=== PATIENT | female | born 1995 | race Caucasian/White ===

== ENCOUNTER 2016-11-04 08:47 | Emergency (ER) | payer OTHER ==
--- NOTE | 2016-11-04 09:14 | EDM.PDOC ---
ED HPI GENERAL MEDICAL PROBLEM - General Chief Complaint: Burn Stated Complaint: RIGHT LEG INJURY Time Seen by Provider: 11/04/16 09:14 - History of Present Illness INITIAL COMMENTS - FREE TEXT/NARRATIVE: 20 yo F who presented to the ER with h/o hot water burn wound to the lateral aspect of the right Leg that she reportedly sustained at work yesterday. Reports that while she was power washing the floor at work, she slipped and Fell down and sustained a first degree burn to the lateral aspect of the right Leg. No other associated injuries. Patient is unsure of her last Tetanus immunization. Treatments MANAGER HI: Reports: Other (see below) Other Treatments MANAGER HI: Dressed and bandaged upon arrival. Right Leg Pain Score (Numeric/FACES): 2 - Related Data Allergies Allergy/AdvReac Type Severity Reaction Status Date / Time No Known Allergies Allergy Verified 11/04/16 08:58 Home Meds: Home Meds NK [No Known Home Meds] 11/04/16 [History] Past Medical History - Past Health History Medical/Surgical History: Denies Medical/Surgical History Social & Family History - Tobacco Use Smoking Status *Q: Never Smoker - Caffeine Use Caffeine Use: Reports: None - Recreational Drug Use Recreational Drug Use: No ED ROS GENERAL - Review of Systems Review Of Systems: ROS reveals no pertinent complaints other than HPI. ED EXAM, BURN/SMOKE INHALATION - Physical Exam Exam: See Below Exam Limited By: No Limitations General Appearance: Alert, WD/WN, No Apparent Distress Eye Exam: Bilateral Eye: EOMI Ears (Abbreviated): Normal External Exam, Normal Canal, Hearing Grossly Normal, Normal TMs Mouth/Throat: No Symptoms Reported Head: No Symptoms Neck: No Symptoms Respiratory: No Respiratory Distress, Lungs Clear, Normal Breath Sounds, No Accessory Muscle Use Cardiovascular: Normal Peripheral Pulses, Regular Rate, Rhythm, No Edema, No JVD GI/Abdominal: Normal Bowel Sounds, Soft, Non-Tender, No Organomegaly, No Distention Back Exam: Normal Inspection, Full Range of Motion Extremity Exam: Other (First degree burn on the lateral aspect of the right Leg) Psychiatric: Normal Affect, Normal Mood Skin Exam: Warm, Dry, Normal Color, No Rash Lymphatic: No Adenopathy Course - Vital Signs Last Recorded V/S: Last Vital Signs Temp 36.7 C 11/04/16 08:50 Pulse 88 11/04/16 08:50 Resp 20 11/04/16 08:50 BP 124/72 11/04/16 08:50 Pulse Ox 98 11/04/16 08:50 - Orders/Labs/Meds Orders: Active Orders 24 hr Category Date Time Status Vaccines to be Administered [RC] PER UNIT ROUTINE Care 11/04/16 09:29 Ordered Meds: Medications Discontinued Medications Generic Name Dose Route Start Last Admin Trade Name Jame PRN Reason Stop Dose Admin Diphtheria/Tetanus/Acell Pertussis 0.5 ml 11/04/16 09:29 11/04/16 09:40 Adacel IM 11/04/16 09:30 0.5 ml .ONCE ONE Administration Silver Sulfadiazine 1 gm 11/04/16 09:30 11/04/16 09:43 Silvadene 1% Cream 400 Gm TOP 11/04/16 09:31 1 mg ONETIME ONE Administration - Re-Assessments/Exams Free Text/Narrative Re-Assessment/Exam: 11/04/16 09:49 Tdap given Burn dressing applied Work note completed Discharged in stable condition Departure - Departure Time of Disposition: 09:51 Disposition: Home, Self-Care 01 Condition: Good Clinical Impression: Burn - Discharge Information Instructions: Burn Care Referrals: PCP,None [Primary Care Provider] - Forms: ED Department Discharge Additional Instructions: Follow with PCP Continue with Martin dressings Tylenol for pain Return if symptoms worsen - My Orders Last 24 Hours: My Active Orders 11/04/16 09:29 Vaccines to be Administered [RC] PER UNIT ROUTINE - Assessment/Plan Last 24 Hours: My Active Orders 11/04/16 09:29 Vaccines to be Administered [RC] PER UNIT ROUTINE
[2016-11-04] MEDS ORDERED: Diphtheria,Pertussis(Acell),Tetanus Vaccine 0.5 ML SDV IM ONE (09:29)
[2016-11-04] MEDS ORDERED: Silver Sulfadiazine 1% Crm 400 GM Jar TOP ONE (09:30)
[2016-11-04] MEDS ORDERED: Silver Sulfadiazine 1% Crm 50 GM Tube TOP ONE (09:36)
== END 2016-11-04 09:59 | disposition home or self-care (01) ==
LOC: FB.ED 08:47
DX: T24.101A Burn of first degree of unspecified site of right lower limb, except ankle and foot, initial encounter (principal); Z23 Encounter for immunization; X19.XXXA Contact with other heat and hot substances, initial encounter
CPT/HCPCS: 16000; 90715; 96372; 99000; 99282; A9270

== ENCOUNTER 2018-01-09 07:07 | Day surgery (SDC) | payer OTHER ==
[~2018-01-09 07:07] MED LIST: Lactated Ringers 1,000 ML IV SCH; Sodium Chloride 0.9% 10 ML Syringe FLUSH PRN
[2018-01-09] MEDS ORDERED: Midazolam 1 MG/ML 2 ML SDV IV ONE (08:24)
[2018-01-09] MEDS ORDERED: Lidocaine 2% 100 MG/5 ML Syringe IVPUSH ONE (08:24)
[2018-01-09] MEDS ORDERED: Propofol 200 MG/20 ML SDV IV ONE (08:24)
--- NOTE | 2018-01-09 08:56 | PCM.OPNOTE ---
- General Post-Op/Procedure Note Date of Surgery/Procedure: 01/09/18 Operative Procedure(s): egd wt bx Findings: gastroduodenitis fundic gland hyperplasia esophagitis Pre Op Diagnosis: epigastric abd pain. nausea Post-Op Diagnosis: gastroduodenitis. fundic gland hyperplasia. esophagitis Anesthesia Technique: [facility] [place] Primary Surgeon: Zachariah Zayas Anesthesia Provider: Stormy Saavedra Pathology: stomach, doudenum, esophagitis Complications: None Condition: Good Free Text/Narrative:: see dictation
--- NOTE | 2018-01-09 09:20 | OR ---
DATE OF OPERATION: 01/09/2018 SURGEON: Zachariah Zayas MD PROCEDURE PERFORMED: Upper endoscopy with cold forceps biopsy. PREOPERATIVE DIAGNOSES: History of epigastric abdominal pain, nausea and vomiting. POSTOPERATIVE DIAGNOSES: Gastroduodenitis, fundic gland hyperplasia, and esophagitis. INDICATIONS FOR PROCEDURE: This is a 22-year-old white female, who was referred with the above-mentioned complaints. She was offered and accepted an upper endoscopy as part of her workup. DESCRIPTION OF PROCEDURE: After an excellent IV sedation was administered, the bite block was inserted. The flexible endoscope was passed without difficulty down the esophagus and into the stomach. Stomach was insufflated. Scope was passed through the pylorus to the second portion of duodenum and slowly withdrawn. The following findings were noted: The duodenum demonstrates irritation and inflammation in the first portion. Biopsies were taken. Stomach demonstrated diffuse gastritis as well as fundic gland hyperplasia. Multiple biopsies were taken from the antrum and along the body of the stomach. Telephone Station Installer biopsies of the polyps were included in this specimen. GE junction measured at 40 cm. There was some mild erythema noted just proximal to this and biopsies were taken there as well. Stomach was deflated. Scope was removed. The patient tolerated the procedure well and was taken to the recovery room in good condition. /[id number] /MODL
== END 2018-01-09 10:05 | disposition home or self-care (01) ==
LOC: FB.SDS 07:07
PROVIDERS: ATTEND Surgery
DX: K29.50 Unspecified chronic gastritis without bleeding (principal); K29.90 Gastroduodenitis, unspecified, without bleeding; K20.9 Esophagitis, unspecified; K31.7 Polyp of stomach and duodenum; E66.9 Obesity, unspecified; Z68.37 Body mass index [BMI] 37.0-37.9, adult; F33.41 Major depressive disorder, recurrent, in partial remission; F90.9 Attention-deficit hyperactivity disorder, unspecified type; Z79.899 Other long term (current) drug therapy; Z91.018 Allergy to other foods; Z91.048 Other nonmedicinal substance allergy status
CPT/HCPCS: 43239; 81025; 88305; 88313; 88342; J2001; J2250; J2704; J7120

== ENCOUNTER 2024-03-18 20:04 | Emergency (ER) | payer OTHER, BC | END 2024-03-18 21:04 | disposition home or self-care (01) | LOC: FB.ED 20:04 | DX: S90.32XA Contusion of left foot, initial encounter (principal); K21.9 Gastro-esophageal reflux disease without esophagitis; E66.9 Obesity, unspecified; Z68.37 Body mass index [BMI] 37.0-37.9, adult; Z79.899 Other long term (current) drug therapy; W20.8XXA Other cause of strike by thrown, projected or falling object, initial encounter; Y99.0 Civilian activity done for income or pay | CPT/HCPCS: 73630-LT; 99283 ==